=== PATIENT | male | born 1965 | race Caucasian/White ===

== ENCOUNTER 2019-09-05 14:21 | Emergency (ER) | payer SELFPAY ==
[~2019-09-05] VITALS: Ht 185.4 cm; Wt 120.2 kg
[2019-09-05 17:40] VITALS: BP 133/78
[2019-09-05] MEDS ORDERED: VANCOMYCIN 1GM/250ML 250 ML IV ONE (17:45)
[2019-09-05] MEDS ORDERED: cefTRIAXone 1GM/50ML D5W 50 ML IV ONE (17:45)
[2019-09-05 18:22] LABS: Basophils # (auto) 0 uL; Basophils % (auto) 0.7 % (0.0-2.0); Eosinophils # (auto) 0.1 uL; Eosinophils % (auto) 1.2 % (0.0-7.0); Hematocrit 47.2 % (41.0-53.0); Hemoglobin 16.3 g/dL (13.5-17.5); Lymphocytes # (auto) 2.3 uL; Lymphocytes % (auto) 35.4 % (10.0-50.0); Mean Corpuscular Hemoglobin 32.6 pg (28.0-32.0); Mean Corpuscular Hgb Conc. 34.4 g/dL (32.0-36.0); Mean Corpuscular Volume 94.7 fL (80.0-100.0); Monocytes # (auto) 0.6 uL; Monocytes % (auto) 9.5 % (0.0-12.0); Neutrophils # (auto) 3.4 uL; Neutrophils % (auto) 53.2 % (37.0-80.0); Nucleated Red Blood Cells % 0.2 %; Platelet Count (auto) 183 10^3/uL (140-450); Red Blood Cells 4.98 10^6/uL (4.5-5.90); Red Cell Distribution Width 13.1 % (11.8-14.3); White Blood Cell 6.4 10^3/uL (4.4-10.8)
[2019-09-05 18:38] LABS: INR 0.95 (0.9-1.15); Partial Thromboplastin Time 25.6 sec (23.64-32.05)
[2019-09-05 18:39] LABS: BUN/Creatinine Ratio 12.4; Calcium 9.5 mg/dL (8.5-10.1); Potassium 4.2 mmol/L (3.5-5.1)
[2019-09-05 18:42] LABS: Bilirubin, Total 0.3 mg/dL (0.2-1.0); Total Protein 7.5 g/dL (6.4-8.2)
[2019-09-05] MEDS ORDERED: GABAPENTIN 100 MG CAP PO ONE (18:45)
[2019-09-09] MEDS ORDERED: CLIN300C8 PO (12:26)
[2019-09-09] MEDS ORDERED: ECON1CRE TOP (12:29)
== END 2019-09-05 19:33 | disposition home or self-care (01) ==
LOC: ER 14:21
DX: L03.115 Cellulitis of right lower limb (principal); E11.65 Type 2 diabetes mellitus with hyperglycemia
CPT/HCPCS: 36415; 71045; 73700; 80053; 83605; 85025; 85610; 85730; 87040; 96365; 96368; 99284; J0696; J3370

== ENCOUNTER 2019-09-06 16:01 | Inpatient (IN) | payer SELFPAY ==
[~2019-09-06] VITALS: Ht 185.4 cm; Wt 127.2 kg
[2019-09-06] MEDS ORDERED: PIPERACILLIN-TAZOB 3.375GM 100 ML IV ONE (16:45)
[2019-09-06] MEDS ORDERED: VANCOMYCIN PER PHARMACY 0 MG IV SCH (16:45)
[2019-09-06 17:24] LABS: Basophils # (auto) 0 uL; Basophils % (auto) 0.7 % (0.0-2.0); Eosinophils # (auto) 0.1 uL; Eosinophils % (auto) 1.8 % (0.0-7.0); Hematocrit 47.5 % (41.0-53.0); Hemoglobin 16.3 g/dL (13.5-17.5); Lymphocytes # (auto) 1.7 uL; Lymphocytes % (auto) 33.3 % (10.0-50.0); Mean Corpuscular Hemoglobin 32.7 pg (28.0-32.0); Mean Corpuscular Hgb Conc. 34.2 g/dL (32.0-36.0); Mean Corpuscular Volume 95.6 fL (80.0-100.0); Monocytes # (auto) 0.7 uL; Neutrophils # (auto) 2.7 uL; Neutrophils % (auto) 51.2 % (37.0-80.0); Nucleated Red Blood Cells % 0.1 %; Platelet Count (auto) 174 10^3/uL (140-450); Red Blood Cells 4.97 10^6/uL (4.5-5.90); Red Cell Distribution Width 13.3 % (11.8-14.3); White Blood Cell 5.2 10^3/uL (4.4-10.8)
[2019-09-06 17:37] LABS: Albumin 3.8 g/dL (3.4-5.0); BUN/Creatinine Ratio 14.4; Calcium 9.5 mg/dL (8.5-10.1); Potassium 4.1 mmol/L (3.5-5.1)
[2019-09-06 17:40] LABS: Bilirubin, Total 0.3 mg/dL (0.2-1.0); Total Protein 7.4 g/dL (6.4-8.2)
[2019-09-06] MEDS ORDERED: SODIUM CHLORIDE 0.9% 1,000 ML IV ONE ×2 (17:57)
[2019-09-06] MEDS: VANCOMYCIN 1,500 MG in D5W 5% 250 ML IV SCH (19:00)
[2019-09-06] MEDS ORDERED: TEMAZEPAM 15 MG CAP PO PRN (23:45)
[2019-09-06] MEDS ORDERED: HYDROcodone-ACET 7.5/325MG TAB PO ONE (23:45)
[2019-09-06] MEDS ORDERED: ACETAMINOPHEN 325 MG TAB PO PRN (23:45)
[2019-09-06] MEDS ORDERED: DEXTROSE (50%) 50ML SYRG IV PRN (23:45)
--- NOTE | 2019-09-07 01:20 | NUR ---
MS admit from ER URI HIGHTOWER admitted to [facility] after SBAR received. Patient oriented to Valerie Root RN primary RN, unit, room, bed, and unit policies regarding patient care and visiting hours. Patient weighed by bedscale and encouraged to call if they need something. All questions and concerns addressed, patient verbalized understanding. Note:
[2019-09-07] MEDS: ONDANSETRON HCL 4 MG/2 ML VIAL IV PRN ×3 (02:05→11:54)
[2019-09-07 05:24] VITALS: BP 148/70
[2019-09-07 05:56] LABS: Basophils # (auto) 0 uL; Basophils % (auto) 0.1 % (0.0-2.0); Eosinophils # (auto) 0.1 uL; Eosinophils % (auto) 1.1 % (0.0-7.0); Hematocrit 44.7 % (41.0-53.0); Hemoglobin 15.5 g/dL (13.5-17.5); Lymphocytes # (auto) 0.3 uL; Lymphocytes % (auto) 4.4 % (10.0-50.0); Mean Corpuscular Hemoglobin 33.3 pg (28.0-32.0); Mean Corpuscular Hgb Conc. 34.8 g/dL (32.0-36.0); Mean Corpuscular Volume 95.8 fL (80.0-100.0); Monocytes # (auto) 0.4 uL; Monocytes % (auto) 5.6 % (0.0-12.0); Neutrophils # (auto) 6.5 uL; Neutrophils % (auto) 88.8 % (37.0-80.0); Platelet Count (auto) 143 10^3/uL (140-450); Red Blood Cells 4.66 10^6/uL (4.5-5.90); Red Cell Distribution Width 13.3 % (11.8-14.3); White Blood Cell 7.4 10^3/uL (4.4-10.8)
[2019-09-07] MEDS: PIPERACILLIN-TAZOB 3.375GM 100 ML IV SCH ×4 (06:00→18:31)
[2019-09-07] MEDS: HYDROcodone-ACET 5/325MG TAB PO PRN ×3 (06:11→22:43)
[2019-09-07] MEDS: ACCU-CHEK COMFORT CURVE STRIP VI SCH ×5 (06:13→22:00)
[2019-09-07] MEDS: VANCOMYCIN 1,500 MG in D5W 5% 250 ML IV SCH ×2 (06:15→18:31)
[2019-09-07 06:17] LABS: BUN/Creatinine Ratio 16.7; Calcium 8.8 mg/dL (8.5-10.1); Potassium 4.5 mmol/L (3.5-5.1)
[2019-09-07] MEDS: InsuLIN REG 1unit/0.01ml Soln (100units/ml) SC SCH ×5 (06:24→22:00)
[2019-09-07] MEDS ORDERED: DULO60CA PO (07:49)
[2019-09-07] MEDS ORDERED: LAMO200T34 PO (07:49)
[2019-09-07] MEDS ORDERED: RISP4TAB53 PO (07:49)
[2019-09-07] MEDS ORDERED: DIVA500T53 PO (07:49)
[2019-09-07] MEDS ORDERED: GABA300C10 PO (07:49)
--- NOTE | 2019-09-07 08:00 | NUR ---
RECEIVED PATIENT ALERT AND ORIENTED X4, NOT IN DISTRESS, LS WHEEZING SOUNDS IN BILATERAL LUNG LOBES, RR=78, COUGHING AND DEEP BREATHING ENCOURAGED, DEMONSTRATED WELL, M/S HEART R=84 ON PALPITATION, ABDOMEN SOFT AND ROUND, C/O ACID REFLEX, PENDING PEPCID PO AT 10:00, LAST BM=THIS MORNING REPORTED, SKIN INTACT WARM TO TOUCH, RADIAL AND PEDAL PULSES PALPABLE, CAP REFILL <3 SECONDS, NONE PITTING EDEMA ON BILATERAL LOWER EXTREMITIES, REDNESS AND SKIN IRRITATION ON RT 2ND AND 3RD TOE NOTED, RESTING ON BED, BED ON LOW POSITION, RAILS UP, CALL LIGHT ON REACH, PENDING PODIATRY CONSULT, WILL CONTINUE MONITORING.
[2019-09-07 09:00] VITALS: BP 150/78
[2019-09-07] MEDS ORDERED: INFLUENZA QUAD 2019-2020 0.5ml SYRG IM ONE (09:00)
[2019-09-07] MEDS: FAMOTIDINE 20 MG TAB PO SCH ×2 (09:21→22:42)
[2019-09-07] MEDS: DULoxetine HCL 30 MG CAP PO SCH ×2 (09:21→22:41)
--- NOTE | 2019-09-07 11:19 | NUR ---
AMA FOR SMOKING WAS SIGNED AND ON CHART, WENT OUT OF THE UNIT FOR SMOKING, WILL CONTINUE MONITORING.
[2019-09-07 13:00] VITALS: BP 150/79
[2019-09-07] MEDS ORDERED: lamoTRIgine 100 MG TAB PO ONE (14:00)
[2019-09-07] MEDS ORDERED: DULoxetine HCL 30 MG CAP PO ONE (14:00)
[2019-09-07] MEDS ORDERED: risperiDONE 1 MG TAB PO ONE (14:00)
--- NOTE | 2019-09-07 14:00 | NUR ---
PENDING HOME MEDICATION UPDATE, DR. HUMPHRIES IS A REYNOLDS, NOT IN DISTRESS, RESTLESS WAITING FOR HOME MEDICATION, WILL CONTINUE MONITORING.
[2019-09-07] MEDS ORDERED: LISINOPRIL 20 MG TAB PO ONE (14:15)
[2019-09-07] MEDS: SODIUM CHLORIDE 0.9% 1,000 ML IV SCH (14:15)
[2019-09-07] MEDS ORDERED: DEXTROSE (50%) 50ML SYRG IV PRN (14:15)
[2019-09-07] MEDS ORDERED: LORazepam 2MG/ML-1ML VIAL IV ONE (14:15)
[2019-09-07] MEDS ORDERED: hydrALAZINE HCL 20 MG/ML VL IV PRN (14:15)
--- NOTE | 2019-09-07 14:27 | NUR ---
Received consult for Loan Servicing Representative to determine the status of pt's insurance. This pt did not want to speak with Neel. Pt stated that he will pay [employer] for the bill.
--- NOTE | 2019-09-07 16:50 | NUR ---
HOME MEDICATIONS UPDATED BY MD AND ADMINISTERED ORDERED, RESTING AND SLEEPING ON BED, PENDING LINING REPAIRER, WILL CONTINUE MONITORING.
[2019-09-07 17:00] VITALS: BP 132/78
--- NOTE | 2019-09-07 19:15 | NUR ---
PULL OUT IV SITE FROM LT.AC, NEW IV SITE G 20 INSERTED ON LT. HAND, TOLERATED WELL, RESTING ON BED, NOT IN DISTRESS, DENIED PAIN, REPORT IS GIVEN TO THE MACHINING DEPARTMENT SUPERVISOR RN.
--- NOTE | 2019-09-07 19:30 | NUR ---
Patient sleeping at beginning of shift, easily awakened. IV patent to Left hand and infusing per orders. Right foot slightly edematous. No complaints of pain. No distress noted. Urine all over the floor around his bed. Wiped up and called EVS to mop. Need UA from patient. Will continue to monitor
[2019-09-07 20:00] VITALS: BP 150/79
[2019-09-07 22:00] VITALS: BP 119/67
[2019-09-07] MEDS: lamoTRIgine 100 MG TAB PO SCH (22:41)
[2019-09-08] MEDS: PIPERACILLIN-TAZOB 3.375GM 100 ML IV SCH ×3 (00:53→12:40)
[2019-09-08 05:23] VITALS: BP 101/53
--- NOTE | 2019-09-08 05:30 | NUR ---
Huge puddle of urine all over floor. Asked the patient if hes continent and he stated "I was so tired last night I didnt even realize I went probly." Was notified that after patient used the elevator he was assumed to have urinated in the elevator as well. EVS also informed me they had cleaned up a trail of stool from his bed to his doorway. After he came back from smoking last night around 2030 he was very sleepy and lethargic. Hard to keep his eyes open. No distress noted. IV infusing per orders.
[2019-09-08] MEDS: SODIUM CHLORIDE 0.9% 1,000 ML IV SCH ×2 (06:35→23:35)
[2019-09-08] MEDS: InsuLIN REG 1unit/0.01ml Soln (100units/ml) SC SCH ×4 (06:37→22:04)
[2019-09-08] MEDS: ACCU-CHEK COMFORT CURVE STRIP VI SCH ×4 (06:37→22:04)
[2019-09-08 07:32] LABS: Potassium 3.6 mmol/L (3.5-5.1)
[2019-09-08 07:45] LABS: BUN/Creatinine Ratio 11.7; Bilirubin, Total 0.3 mg/dL (0.2-1.0); Calcium 8.3 mg/dL (8.5-10.1); Total Protein 5.6 g/dL (6.4-8.2)
[2019-09-08] MEDS: VANCOMYCIN 1,500 MG in D5W 5% 250 ML IV SCH (07:49)
[2019-09-08 09:00] VITALS: BP 87/37
[2019-09-08 09:30] LABS: Hematocrit 40.8 % (41.0-53.0); Mean Corpuscular Hgb Conc. 34.4 g/dL (32.0-36.0); Mean Corpuscular Volume 95.7 fL (80.0-100.0); Platelet Count (auto) 105 10^3/uL (140-450); Red Blood Cells 4.26 10^6/uL (4.5-5.90); Red Cell Distribution Width 13.3 % (11.8-14.3); White Blood Cell 2.1 10^3/uL (4.4-10.8)
[2019-09-08 09:38] LABS: Band Neutrophils % (manual) 0; Basophils % (manual) 0 (0.0-2.0); Blast Cells 0; Metamyelocytes % 0; Myelocytes % 0; Promyelocytes % 0; Reactive Lymphocytes 0
[2019-09-08] MEDS ORDERED: LISINOPRIL 20 MG TAB PO SCH (10:00)
[2019-09-08] MEDS: GABAPENTIN 300 MG CAP PO SCH (10:14)
[2019-09-08] MEDS: FAMOTIDINE 20 MG TAB PO SCH ×2 (10:15→22:03)
[2019-09-08] MEDS: risperiDONE 1 MG TAB PO SCH (10:15)
[2019-09-08] MEDS: lamoTRIgine 100 MG TAB PO SCH ×2 (10:15→22:03)
--- NOTE | 2019-09-08 10:15 | NUR ---
Patient had urinated and had BM on floor. Area cleaned, linens changed. Patient is not able to states why this happened. Will continue to monitor.
[2019-09-08] MEDS: DULoxetine HCL 30 MG CAP PO SCH ×2 (10:16→22:03)
--- NOTE | 2019-09-08 11:05 | NUR ---
Dr. Everett in to see patient as hospitalist.
[2019-09-08 11:49] LABS: Eosinophils % (manual) 3 (0-7); Lymphocytes % (manual) 33 (10.0-50.0); Monocytes % (manual) 19 (0-12)
[2019-09-08 13:00] VITALS: BP 109/47
[2019-09-08] MEDS: HYDROcodone-ACET 5/325MG TAB PO PRN ×3 (13:05→22:34)
[2019-09-08] MEDS: ONDANSETRON HCL 4 MG/2 ML VIAL IV PRN ×3 (13:05→22:33)
[2019-09-08 17:00] VITALS: BP 102/55
[2019-09-08] MEDS ORDERED: VANCOMYCIN 1,500 MG in D5W 5% 250 ML IV SCH (17:00)
[2019-09-08] MEDS: CLINDAMYCIN 600MG IV 50 ML IV SCH ×2 (17:27→22:03)
[2019-09-08 22:00] VITALS: BP 112/79
[2019-09-09 05:00] VITALS: BP 92/53
[2019-09-09] MEDS: CLINDAMYCIN 600MG IV 50 ML IV SCH ×2 (06:00→14:00)
[2019-09-09] MEDS: InsuLIN REG 1unit/0.01ml Soln (100units/ml) SC SCH ×3 (06:44→17:00)
[2019-09-09] MEDS: ONDANSETRON HCL 4 MG/2 ML VIAL IV PRN (06:45)
[2019-09-09] MEDS: HYDROcodone-ACET 5/325MG TAB PO PRN ×2 (06:46→14:43)
[2019-09-09] MEDS: ACCU-CHEK COMFORT CURVE STRIP VI SCH ×3 (07:01→17:00)
[2019-09-09 07:09] LABS: Hemoglobin 14.1 g/dL (13.5-17.5); Mean Corpuscular Hemoglobin 32.9 pg (28.0-32.0); Mean Corpuscular Hgb Conc. 34.5 g/dL (32.0-36.0); Mean Corpuscular Volume 95.4 fL (80.0-100.0); Platelet Count (auto) 104 10^3/uL (140-450); Red Cell Distribution Width 12.9 % (11.8-14.3); White Blood Cell 2.5 10^3/uL (4.4-10.8)
[2019-09-09 07:17] LABS: Band Neutrophils % (manual) 0; Basophils % (manual) 0 (0.0-2.0); Blast Cells 0; Metamyelocytes % 0; Myelocytes % 0; Promyelocytes % 0; Reactive Lymphocytes 0
[2019-09-09 07:28] LABS: Albumin 2.8 g/dL (3.4-5.0); BUN/Creatinine Ratio 12.3; Calcium 8.2 mg/dL (8.5-10.1); Potassium 3.7 mmol/L (3.5-5.1)
[2019-09-09 07:31] LABS: Bilirubin, Total 0.2 mg/dL (0.2-1.0); Total Protein 5.7 g/dL (6.4-8.2)
[2019-09-09 07:48] LABS: Eosinophils % (manual) 3 (0-7); Lymphocytes % (manual) 54 (10.0-50.0); Monocytes % (manual) 19 (0-12)
[2019-09-09 09:00] VITALS: BP 142/81
[2019-09-09] MEDS: risperiDONE 1 MG TAB PO SCH (10:00)
[2019-09-09] MEDS: GABAPENTIN 300 MG CAP PO SCH (10:00)
[2019-09-09] MEDS: FAMOTIDINE 20 MG TAB PO SCH (10:00)
[2019-09-09] MEDS: DULoxetine HCL 30 MG CAP PO SCH (10:01)
[2019-09-09] MEDS: lamoTRIgine 100 MG TAB PO SCH (10:02)
[2019-09-09] MEDS ORDERED: CLIN300C8 PO (12:26)
[2019-09-09] MEDS ORDERED: ECON1CRE TOP (12:29)
[2019-09-09 13:00] VITALS: BP 142/61
[2019-09-09] MEDS ORDERED: INFLUENZA QUAD 2019-2020 0.5ml SYRG IM ONE (14:45)
--- NOTE | 2019-09-09 15:50 | NUR ---
assessment Patient is a 54 year old male who is alert and oriented. Patients cognitive abilities are intact. Prior to admission patient lived home alone and functioned independently. Patient informed me he is able to care for his own ADLs. Per patient he will return home to his prior living arrangements post discharge and family will transport him home. Patient has no insurance. Patient has been assessed by Neel Hicks of [facility]. Patient may qualify for [employer] if she brings back all her paperwork. Patient is refusing to do paperwork. Patient is a true self pay. I have provided patient with resources for [facility], Dr. Nielson, and [facility] urgent care for follow up visits. I have provided patient with a prescription card from community assistance program.I informed patient he has a right to speak to a addiction social worker regarding all care. I informed patient he has a right to participate in any and all discharge planning. Patient does not have a POA and advanced directive. I have offered patient information on POA and advanced directives. I informed the patient the advantages and benefits of having an Advanced Directive. Patient verbalized understanding and agreed to discharge plan. Addendum: 09/09/19 at 1552 by Jacqueline ROTHMAN Amended: Links added.
[2019-09-09 16:06] VITALS: BP 142/61
--- NOTE | 2019-09-09 16:34 | NUR ---
FRACTURE BOOT PLACED ON PATIENT BY ORTHO.
[2019-09-09 17:00] VITALS: BP 153/87
--- NOTE | 2019-09-09 17:59 | NUR ---
Discharge instructions given as ordered. Encourage to follow up with PMD and Dr Mina as instructed. All questions and concerns addressed. Patient verbalized understanding. Medication reconciliation form completed and copy given to patient. Home medications held in Pharmacy returned to patient, and needed vaccines given. IV removed with catheter intact, pressure dressing applied. [facility] taken to [facility] per patient request, via wheelchair with all personal belongings, accompanied by staff. No distress noted at time of departure.
== END 2019-09-09 15:00 | disposition home or self-care (01) | DRG 638 ==
LOC: ER 16:16 → WEST WING 16:17
PROVIDERS: ADMIT Nurse Practitioner; ATTEND Internal Medicine
DX: E11.69 Type 2 diabetes mellitus with other specified complication (principal); M86.171 Other acute osteomyelitis, right ankle and foot; L03.115 Cellulitis of right lower limb; E66.9 Obesity, unspecified; Z68.37 Body mass index [BMI] 37.0-37.9, adult; F31.9 Bipolar disorder, unspecified; I10 Essential (primary) hypertension; S92.491A Other fracture of right great toe, initial encounter for closed fracture; X58.XXXA Exposure to other specified factors, initial encounter; Z79.4 Long term (current) use of insulin; Z82.49 Family history of ischemic heart disease and other diseases of the circulatory system; Z91.19 Patient's noncompliance with other medical treatment and regimen; Y93.89 Activity, other specified; Y92.89 Other specified places as the place of occurrence of the external cause; Y99.8 Other external cause status
CPT/HCPCS: 36415; 71045; 73718; 80048; 80053; 80061; 80202; 82962; 83036; 83605; 83735; 84443; 85007; 85025; 85027; 87040; G0378; J1815; J2405; J2543; J3490; J7060

== ENCOUNTER 2019-09-13 12:45 | Emergency (ER) | payer SELFPAY ==
[~2019-09-13] VITALS: Ht 190.5 cm; Wt 117.9 kg
[~2019-09-13 12:45] MED LIST: CLIN300C8 PO; DIVA500T53 PO; DULO60CA PO; ECON1CRE TOP; GABA300C10 PO; LAMO200T34 PO; RISP4TAB53 PO
[2019-09-13 13:36] LABS: Basophils # (auto) 0 uL; Basophils % (auto) 0.4 % (0.0-2.0); Eosinophils # (auto) 0.1 uL; Eosinophils % (auto) 1.1 % (0.0-7.0); Hematocrit 44.9 % (41.0-53.0); Hemoglobin 15.5 g/dL (13.5-17.5); Lymphocytes # (auto) 1.5 uL; Lymphocytes % (auto) 28.1 % (10.0-50.0); Mean Corpuscular Hemoglobin 32.7 pg (28.0-32.0); Mean Corpuscular Hgb Conc. 34.5 g/dL (32.0-36.0); Mean Corpuscular Volume 94.7 fL (80.0-100.0); Monocytes # (auto) 0.6 uL; Monocytes % (auto) 11.3 % (0.0-12.0); Neutrophils # (auto) 3.3 uL; Neutrophils % (auto) 59.1 % (37.0-80.0); Nucleated Red Blood Cells % 0.1 %; Platelet Count (auto) 152 10^3/uL (140-450); Red Blood Cells 4.74 10^6/uL (4.5-5.90); Red Cell Distribution Width 13.4 % (11.8-14.3); White Blood Cell 5.5 10^3/uL (4.4-10.8)
[2019-09-13 13:47] LABS: Alanine Aminotransferase 97 U/L (16-61); Albumin 3.7 g/dL (3.4-5.0); Anion Gap 6 (5-15); Aspartate Aminotransferase 72 U/L (15-37); BUN/Creatinine Ratio 12.9; Blood Urea Nitrogen 12 mg/dL (7-18); Calcium 9.6 mg/dL (8.5-10.1); Carbon Dioxide 29 mmol/L (21-32); Chloride 104 mmol/L (98-107); GFR African American 108 mL/min; GFR Non-African American 89 mL/min; Glucose 119 mg/dL (74-106); Magnesium 2.1 mg/dL (1.6-2.6); Potassium 3.8 mmol/L (3.5-5.1); Sodium 139 mmol/L (136-145)
[2019-09-13 13:52] LABS: Alkaline Phosphatase 82 U/L (45-117); Bilirubin, Total 0.5 mg/dL (0.2-1.0); Total Protein 7.2 g/dL (6.4-8.2)
[2019-09-13 18:06] VITALS: BP 156/69
== END 2019-09-14 00:03 | disposition home or self-care (01) ==
LOC: EDBD 12:45 → ER 12:45
DX: F31.9 Bipolar disorder, unspecified (principal); R41.82 Altered mental status, unspecified; E11.9 Type 2 diabetes mellitus without complications; I10 Essential (primary) hypertension; F17.210 Nicotine dependence, cigarettes, uncomplicated; Z86.73 Personal history of transient ischemic attack (TIA), and cerebral infarction without residual deficits
CPT/HCPCS: 36415; 70450; 80053; 80185; 83735; 84484; 85025; 93005; 94761

== ENCOUNTER 2020-04-18 19:58 | Emergency (ER) | payer SELFPAY ==
[~2020-04-18] VITALS: Ht 182.9 cm; Wt 115.7 kg
[2020-04-18] MEDS ORDERED: SODIUM CHLORIDE 0.9% 1,000 ML IVB ONE (20:06)
[2020-04-18] MEDS ORDERED: risperiDONE 1 MG TAB PO ONE (20:15)
[2020-04-18] MEDS ORDERED: LORazepam 2MG/ML-1ML VIAL IV ONE (20:15)
[2020-04-18 20:51] LABS: Basophils # (auto) 0.1 10 ^3/uL (0-0.2); Basophils % (auto) 0.8 % (0.0-2.0); Eosinophils # (auto) 0.1 10 ^3/uL (0-0.8); Eosinophils % (auto) 0.9 % (0.0-7.0); Hematocrit 49.7 % (41.0-53.0); Hemoglobin 16.8 g/dL (13.5-17.5); Lymphocytes # (auto) 1.6 10 ^3/uL (0.4-5.4); Mean Corpuscular Hemoglobin 31.9 pg (28.0-32.0); Mean Corpuscular Hgb Conc. 33.8 g/dL (32.0-36.0); Mean Corpuscular Volume 94.2 fL (80.0-100.0); Monocytes # (auto) 0.9 10 ^3/uL (0-1.3); Monocytes % (auto) 12.7 % (0.0-12.0); Neutrophils # (auto) 4.4 10 ^3/uL (1.6-8.6); Neutrophils % (auto) 62.6 % (37.0-80.0); Nucleated Red Blood Cells % 0.2 %; Platelet Count (auto) 147 10^3/uL (140-450); Red Blood Cells 5.27 10^6/uL (4.5-5.90)
[2020-04-18 21:13] LABS: Albumin 3.7 g/dL (3.4-5.0); BUN/Creatinine Ratio 18.2; Calcium 9.6 mg/dL (8.5-10.1); Magnesium 2.4 mg/dL (1.6-2.6); Potassium 3.7 mmol/L (3.5-5.1)
[2020-04-18 21:16] LABS: Bilirubin, Total 0.6 mg/dL (0.2-1.0); Total Protein 7.5 g/dL (6.4-8.2)
[2020-04-18 22:54] LABS: Amphetamine Screen, Urine NEGATIVE (NEGATIVE); Barbiturate Scree,Urine NEGATIVE (NEGATIVE); Benzodiazephine Screen, Urine NEGATIVE (NEGATIVE); Cannabinoid Screen, Urine POSITIVE (NEGATIVE); Cocaine Screen, Urine NEGATIVE (NEGATIVE); Opiate Scree,Urine NEGATIVE (NEGATIVE); Phencyclidine Screen, Urine NEGATIVE (NEGATIVE)
[2020-04-18 23:09] VITALS: BP 143/78
== END 2020-04-19 00:35 | disposition home or self-care (01) ==
LOC: EDBD 19:58 → ER 20:03
DX: F31.9 Bipolar disorder, unspecified (principal); R20.0 Anesthesia of skin; F41.9 Anxiety disorder, unspecified; F17.210 Nicotine dependence, cigarettes, uncomplicated; E11.9 Type 2 diabetes mellitus without complications; I10 Essential (primary) hypertension; Z86.73 Personal history of transient ischemic attack (TIA), and cerebral infarction without residual deficits
CPT/HCPCS: 36415; 80053; 80307; 80320; 83735; 85025; 96374; 99283; J2060; J7030; 96361